=== PATIENT | male | born 1970 | race African-American/Black ===

== ENCOUNTER 2016-09-03 17:48 | Emergency (ER) | payer SELFPAY | END 2016-09-03 22:10 | disposition home or self-care (01) | LOC: D.ER 17:48 | DX: S61.214A Laceration without foreign body of right ring finger without damage to nail, initial encounter (principal); W45.8XXA Other foreign body or object entering through skin, initial encounter; Y93.89 Activity, other specified; Y92.019 Unspecified place in single-family (private) house as the place of occurrence of the external cause; S81.812A Laceration without foreign body, left lower leg, initial encounter; F17.200 Nicotine dependence, unspecified, uncomplicated ==

== ENCOUNTER 2017-07-10 20:21 | Emergency (ER) | payer SELFPAY | END 2017-07-10 23:00 | disposition left against medical advice (07) | LOC: D.ER 20:21 | DX: R05 Cough (principal) ==